=== PATIENT | female | born 1985 | race Caucasian/White ===

== ENCOUNTER 2018-08-15 12:30 | Emergency (ER) | payer OTHER ==
[2018-08-15 12:53] VITALS: BMI 31.8
--- NOTE | 2018-08-15 13:20 | PDOC ---
History of Present Illness - General Chief Complaint: Seizure Stated Complaint: POSSIBLE SEIZURE Time Seen by Provider: 08/15/18 12:58 - History of Present Illness Initial Comments: 08/15/18 14:06 33F with pmh of TBI and seizures presents to the ED with tingling down the extremities, feeling she might be about to have a seizure. Usually takes unknown dose of Keppra, used to take Depakote as well. Does not have a neurologist. Past History - Past Medical History Allergies/Adverse Reactions: Allergies Allergy/AdvReac Type Severity Reaction Status Date / Time No Known Allergies Allergy Verified 08/15/18 12:53 Home Medications: Ambulatory Orders Albuterol Sulfate Inhaler - [Ventolin HFA Inhaler -] 1 - 2 inh PO Q4H #1 inhaler 08/15/18 Divalproex *ER* [Depakote *ER* -] 250 mg PO BID #60 tablet.sa 08/15/18 levETIRAcetam [Keppra Xr -] 1,000 mg PO BID #30 tab 08/15/18 COPD: No Psychiatric Problems: Yes (drug abuse/homeless) Seizures: Yes - Immunization History Immunization Up to Date: Yes - Suicide/Smoking/Psychosocial Hx Smoking History: Unknown if ever smoked Have you smoked in the past 12 months: No Information on smoking cessation initiated: No 'Breaking Loose' booklet given: 08/11/15 Hx Alcohol Use: No Drug/Substance Use Hx: No Substance Use Type: None Review of Systems - Review of Systems Able to Perform ROS?: Yes Is the patient limited American proficient: No Constitutional: No: Symptoms Reported HEENTM: No: Symptoms Reported Respiratory: No: Symptoms reported Cardiac (ROS): No: Symptoms Reported ABD/GI: No: Symptoms Reported Neurological: Yes: See HPI, Tingling All Other Systems: Reviewed and Negative *Physical Exam - Vital Signs Last Vital Signs Temp Pulse Resp BP Pulse Ox 98 F 95 H 16 109/73 100 08/15/18 12:30 08/15/18 12:30 08/15/18 12:30 08/15/18 12:30 08/15/18 12:30 - Physical Exam General Appearance: Yes: Nourished, Appropriately Dressed. No: Apparent Distress HEENT: positive: EOMI, PRIMO, Normal ENT Inspection Respiratory/Chest: positive: Wheezing (on expiration). negative: Chest Tender Cardiovascular: positive: Regular Rhythm, Regular Rate, S1, S2 Gastrointestinal/Abdominal: positive: Normal Bowel Sounds, Flat, Soft. negative : Tender Integumentary: positive: Normal Color Neurologic: positive: Fully Oriented, Alert, Normal Mood/Affect, Normal Response. negative: Numbness, Sensory Deficit ED Treatment Course - LABORATORY CBC & Chemistry Diagram: 08/15/18 13:42 08/15/18 13:42 Medical Decision Making - Medical Decision Making 08/15/18 14:48 33F with h/o TBI and seizure, non-compliant with medication presents with tingling down extremities. PAtuient has h/o asthma and is wheezin, giving duoneb. Called [facility] to gather more information about the patient's home dose of anti-seizure meds. Patient has had a visit to [facility] in February and June where she got a 2 weeks Rx of Depakote in February and Keppra in June. Will give loading dose of Keppra and d/c with prescription of Keppra and give Neurology follow up. *DC/Admit/Observation/Transfer Diagnosis at time of Disposition: Tingling in extremities, Wheezing - Discharge Dispostion Disposition: HOME Condition at time of disposition: Improved Decision to Admit order: No - Prescriptions Prescriptions: levETIRAcetam [Keppra Xr -] 1,000 mg PO BID #30 tab - Referrals Referrals: Luis A Finney MD [Staff Physician] - Misha Oropeza MD [Staff Physician] - Pancho Colmenares DO [Staff Physician] - - Patient Instructions Printed Discharge Instructions: DI for Seizure Disorder -- Adult Additional Instructions: quality assurance group leader your prescription from the pharmacy as use as directed. Follow up with neurology with any of the providers referred to you. Come back to the emergency medicine for any new, worsening or concerning symptom. - Post Discharge Activity
[2018-08-15 13:51] LABS: BASO % 0.9 % (0-2.0); EOS % 2.4 % (0-4.5); HEMATOCRIT 40.8 % (32.4-45.2); HEMOGLOBIN 13.7 GM/dL (10.7-15.3); LYMPH % 25.3 % (8-40); MCH 31.3 pg (25.7-33.7); MCHC 33.6 g/dl (32.0-36.0); MEAN CELL VOLUME 93.2 fl (80-96); MONO % 8.2 % (3.8-10.2); NEUT % 63.2 % (42.8-82.8); RBC 4.38 M/mm3 (3.60-5.2); WHITE BLOOD COUNT 8.3 K/mm3 (4.0-10.0)
[2018-08-15] MEDS ORDERED: ALBUTEROL SO4 2.5/IPRATROPIUM 0.5 INH SOL 3 ML VIAL.NEB. NEB ONE ×2 (14:03→14:12)
[2018-08-15] MEDS ORDERED: levETIRAcetam 500 MG/5 ML INJECTION VIAL IVPB ONE ×2 (14:03→14:12)
[2018-08-15 14:13] LABS: ALBUMIN 3.9 g/dl (3.4-5.0); BILIRUBIN,TOTAL 0.5 mg/dL (0.2-1); BLOOD UREA NITROGEN 9.2 mg/dL (7-18); CALCIUM 9.1 mg/dL (8.5-10.1); CREATININE 0.7 mg/dL (0.55-1.3); POTASSIUM 4.3 mmol/L (3.5-5.1); TOT PROT 7.6 g/dl (6.4-8.2)
--- NOTE | 2018-08-15 14:32 | PDOC ---
Documentation entered by Ray Waters SCRIBE, acting as scribe for Kaila Fink MD. Kaila Fink MD: This documentation has been prepared by the Jt gonzalez Daniel, SCRIBE, under my direction and personally reviewed by me in its entirety. I confirm that the documentation accurately reflects all work, treatment, procedures, and medical decision making performed by me. Attending Attestation - Resident Resident Name: Brad Rivers - ED Attending Attestation I have performed the following: I have examined & evaluated the patient, The case was reviewed & discussed with the resident, I agree w/resident's findings & plan - HPI HPI: 08/15/18 13:43 The patient is a 33 year old female with a past medical history of TBI/ seizures , smoker here today for evaluation of possible seizure. The patient reports that she ran out of her seizure meds 4 days ago and came in today due to fear of possible seizure. She notes tingling in her hands and feet. last sz was 1 week ago, seen at [facility] had a nasal fx she is supposed to be on keppra 1g BID and depakoate 250mg BID, has not been taking x 1 week at least due to running out of meds +smoker. Patient denies headache, lightheadedness. Denies fever, chills. Denies chest pain, shortness of breath. Denies nausea, vomiting, diarrhea, abdominal pain. Allergies: NKA 08/15/18 15:09 - Physicial Exam PE: 08/15/18 14:28 Agree with the resident's HPI and PE as documented in the electronic medical record. NAD, alert, oriented appropriately, EOMI, PERRL, MMM, nl conjunctiva, anicteric ; neck supple. lungs with wheezing, RRR, abdomen soft nontender. Back nontender. MCDOWELL x4, no focal neuro deficits. No peripheral edema. normal color for ethnicity, WWP. 08/15/18 15:10 08/15/18 15:11 - Medical Decision Making 08/15/18 15:10 See HPI for details. Prior notes reviewed, including admissions, discharges and consultations. Vital signs reviewed, wnl. laboratory results and imaging reviewed, basic labs and lytes wnl, LFTs normal UA_neg EKG normal sinus rhythm at 86 bpm, no interval abnormalities, narrow QRS, ST and T wave segments and morphology normal. valproic level low; keppra level pending CT head_unremarkable, no DIRECTOR OF CARDIAC REHABILITATION pathology ED course - no events here, no seizure, episode of shaking but was awake and alert and making purposeful movements, so doubt -interventions: IVF, keppra; duonebs for wheezing, she is smoker; however, no sob or cp, no respiratory distress or hypoxia, so doubt pathology and will rx albuterol inhaler to be used as needed. resident contacted [facility], where she has gone previously, visits notable for prior keppra administration pharmacy called, has had rx for keppra 1g BID will refill, as pt is not able to provide info on medication regimen. refill valproic acid 250mg BID and keppra 1g BID, compliance encouraged neuro followup provided, compliance emphasized. Pt to be discharged in stable condition. Patient made aware of clinical impression, treatment recommendations and disposition plan, return precautions discussed (including but not limited to new or persistent/worsening symptoms, pain, fevers, or signs of infection, chest pain, respiratory distress, inability to tolerate oral intake, dehydration, syncope, or neurologic changes) . Follow up with PMD and/or specialist as recommended, follow up information provided, take medications as instructed for duration of time. continue with supportive care, avoid triggers and precipitants. All questions answered to patient's satisfaction and expressed understanding and comfort with this. At the time of discharge, the patient is alert, clinically improved, tolerating po and verbalizes understanding of instructions, satisfied with the care received and felt comfortable with the plan. Patient does not suffer from an acute life- threatening medical condition at this time and is safe for outpatient follow- up. 08/15/18 15:11 08/15/18 15:12 08/15/18 15:16 08/15/18 16:18 Heart Score/ECG Review #1 ECG reviewed & interpreted by me at: 13:30 General ECG Interpretation: Sinus Rhythm, Normal Rate, Normal Intervals Compared to previous ECG there are: No significant change 08/15/18 14:32 EKG normal sinus rhythm at 86 bpm, no interval abnormalities, narrow QRS, ST and T wave segments and morphology normal.
[2018-08-15] MEDS ORDERED: SODIUM CHLORIDE 0.9% 500 ML INFUS.BAG IV ONE (14:47)
[2018-08-15 15:10] LABS: PLATELET COUNT 370 K/MM3 (134-434)
[2018-08-15 18:32] VITALS: BP 110/78; PULSE 76; TEMP 98.5
--- NOTE | 2018-08-17 00:25 | EKG ---
Test Reason : Blood Pressure : / mmHG Vent. Rate : 086 BPM Atrial Rate : 086 BPM P-R Int : 138 ms QRS Dur : 080 ms QT Int : 354 ms P-R-T Axes : 070 065 058 degrees QTc Int : 423 ms NORMAL SINUS RHYTHM NORMAL ECG WHEN COMPARED WITH ECG OF 22-JUN-2014 00:11, T WAVE INVERSION NO LONGER EVIDENT IN ANTERIOR LEADS Confirmed by MD Jose, Ricardo ([id number]) on 08/17/2018 12:25:10 AM Referred By: Confirmed By:Ricardo Garcia MD
== END 2018-08-15 18:32 | disposition home or self-care (01) ==
LOC: JER 12:30
PROC: 3E0F7GC Introduction of Other Therapeutic Substance into Respiratory Tract, Via Natural or Artificial Opening (ICD-10-PCS; principal; 2018-08-15)
PROC: 3E033GC Introduction of Other Therapeutic Substance into Peripheral Vein, Percutaneous Approach (ICD-10-PCS; 2018-08-15)
DX: G40.909 Epilepsy, unspecified, not intractable, without status epilepticus (principal); R20.2 Paresthesia of skin; Z91.14 Patient's other noncompliance with medication regimen
CPT/HCPCS: 36415; 70450-TC; 80053; 80164; 80177; 84703; 85025; 93005; 93010; 94640; 96374; 99283-25

== ENCOUNTER 2019-09-13 15:21 | Emergency (ER) | payer OTHER ==
[2019-09-13 15:25] VITALS: BP 111/68; PULSE 86; TEMP 98.5; BMI 30.8
--- NOTE | 2019-09-13 15:25 | PDOC ---
History of Present Illness - General Chief Complaint: Suture/Staple Removal(Here) Stated Complaint: LEFT ANKLE SURGERY Time Seen by Provider: 09/13/19 15:23 History Source: Patient Exam Limitations: No Limitations - History of Present Illness Initial Comments: 09/13/19 15:24 34 year old female with a past medical history of TBI/ seizures, smoker here today for evaluation of left ankle pain. She is s/p left ankle surgery about [address] Porter at [facility] when she sustained tib-fib fx.. pt c/o pain with walking "all the time." pt sent in from Dr Porter for eval of the left ankle pain, suture removal, post op x ray. he states pt has been weight bearing, not compliant with weight bearing restrictions; pt states she has had difficulty getting wheelchair thro [facility] [employer] her insurance company. 09/13/19 15:31 09/13/19 16:17 Past History - Medical History Allergies/Adverse Reactions: Allergies Allergy/AdvReac Type Severity Reaction Status Date / Time No Known Allergies Allergy Verified 09/13/19 15:23 Home Medications: Ambulatory Orders Albuterol Sulfate Inhaler - [Ventolin HFA Inhaler -] 1 - 2 inh PO Q4H #1 inhaler 08/15/18 Divalproex *ER* [Depakote *ER* -] 250 mg PO BID #60 tablet.sa 08/15/18 levETIRAcetam [Keppra Xr -] 1,000 mg PO BID #30 tab 08/15/18 levETIRAcetam [Keppra -] 500 mg PO BID #60 tablet 08/18/18 COPD: No Psychiatric Problems: Yes (drug abuse/homeless) Seizures: Yes - Immunization History Immunization Up to Date: Yes - Psycho-Social/Smoking History Smoking History: Unknown if ever smoked Have you smoked in the past 12 months: No 'Breaking Loose' booklet given: 08/11/15 Review of Systems - Review of Systems Able to Perform ROS?: Yes Comments:: 09/13/19 15:32 Review of Systems Constitutional: no fevers or chills. Abdomen: no abdominal pain Genitorurinary: no urinary retention or incontinence, no dysuria, urgency or frequency. no hematuria MUSCULOSKELETAL: +joint pain and swelling. No muscle pain/arthralgias. Back: no back pain SKIN: no redness or skin changes, no discharge, no rash. +healed wound with sutures in place Hematologic: no easy bruising/bleeding. NEUROLOGIC: No weakness, numbness or tingling. Allergic/Immunologic: no allergies All other systems reviewed and negative, or as documented in HPI. *Physical Exam - Physical Exam 09/13/19 15:32 physical exam General: NAD, well appearing HEENT: NCAT, EOMI, PERRL. airway patent Resp: no distress, speaking full sentences. Abdomen: soft, no tenderness, nondistended Vascular: 2+ DP pulses symmetric and equal. Back: no midline tenderness, no stepoffs, FROM MSK: notable for soft compartments, Cap refill <2 sec. Proximal and distal strength 5/5, molder machine tender strength 5/5 - equal and symmetric. Plantar flexion and dorsiflexion 5/5. FROM. Sensation grossly intact to light touch. No calf tenderness. +left lateral and medial malleolar and lower leg sutures in place, vertical, well healed, no erythema, c/d/i Neuro: alert, no focal neurologic deficits Skin: color normal color, warm and well perfused. Cap refill <2 sec. left lateral lower leg/ and medial malleolar vertical c/d/i wound, sutures in place 09/13/19 15:55 Medical Decision Making - Medical Decision Making 09/13/19 15:34 Vital Signs Temp Pulse Resp BP Pulse Ox 98.5 F 86 16 111/68 100 09/13/19 15:23 09/13/19 15:23 09/13/19 15:23 09/13/19 15:23 09/13/19 15:23 VS reviewed, wnl spoke with Dr Porter, will come to the ED for eval, suture removal post op x ray requested. cam boot removed fully. NVI. tylenol/toradol given here for analgesia no indication for opioids Xray left ankle with normal joint space alignment, no acute fx or dislocation. s/p plating and screws in place given prior fracture pattern, in place with hardware intact sutures removed by Dr Porter, no complications. continue with nonweight bearing status Discussed results with patient. Rest ice and elevation. Pain control with OTC meds including motrin/tylenol as needed every 6 hours; no narcotics needed. Ortho followup provided. Crutches to assist with ambulation Please return to ED for increased pain, weakness, numbness/tingling, fever, or redness, neuro changes/fall risk 09/13/19 16:16 Discharge - Discharge Information Problems reviewed: Yes Clinical Impression/Diagnosis: Encounter for removal of sutures, Left ankle pain Left ankle injury Qualifiers: Encounter type: sequela Qualified Code(s): S99.912S - Unspecified injury of left ankle, sequela Condition: Stable Disposition: HOME - Admission No - Follow up/Referral Referrals: Hector Porter DO [Staff Physician] - - Patient Discharge Instructions Patient Printed Discharge Instructions: DI for Suture Removal, DI for Ankle Pain Additional Instructions: keep weight off your foot as you continue to heal. maintain the cam boot monitor for signs of infection, your stitches were removed today monitor for signs of infection, such as fever, discharge, malodor, redness, swelling, increased pain or other worsening symptoms such as focal weakness, numbness, tingling, falls or gait instability. follow up with Dr Porter, your orthopedist physician as an outpatient for appropriate reevaluation and followup - Post Discharge Activity
[2019-09-13] MEDS ORDERED: ACETAMINOPHEN 325 MG TABLET (FP) PO ONE (15:48)
[2019-09-13] MEDS ORDERED: KETOROLAC TROMETHAMINE 30 MG/1 ML VIAL IM ONE (15:49)
[2019-09-13] MEDS ORDERED: ACETAMINOPHEN 325 MG TABLET (FP) ONE (15:51)
[2019-09-13] MEDS ORDERED: KETOROLAC TROMETHAMINE 30 MG/1 ML VIAL ONE (15:52)
--- NOTE | 2019-09-13 16:39 | CONSULT ---
Consult - text type - Consultation Consultation Note: ORTHOPEDIC SURGERY CONSULTATION NOTE Department of Orthopedic Surgery HISTORY OF PRESENT ILLNESS Key Bingham is a 34 year old female who presents to [facility] for evaluation of her left ankle. She is 3 weeks status post left ankle ORIF. We contacted her today to confirm her routine office appointment tomorrow for suture removal. She stated that she was having ankle pain and admits to not being complaint with weight bearing restrictions. She has not been able to get a wheelchair or knee scooter. She had a doctors appointment today in [place] and has been ambulating with a cane. She was told to go to the ED and I would meet her there. She currently complains of left ankle pain 03/29. Denies any new injuries. Denies numbness, tingling, fevers, chills or other constitutional complaints. Denies tobacco use, drug use, alcohol abuse. The patient is using a cane as an assistive device. FAMILY HISTORY Review and noncontributory REVIEW OF SYMPTOMS A twelve-point review of systems was performed and was negative except as noted in HPI. PHYSICAL EXAM Constitutional: Alert and oriented to person, place, and time. No acute distress. Right Lower Extremity: No cords or calf tenderness. No significant calf/ankle edema. Full passive and active ROM, free from pain. Joints stable with no pathologic laxity. EHL/TA/GS motor intact; SILT distally; 2+ DP pulses; Cap refill brisk. Tone and reflexes normal. Left Lower Extremity: Medial and lateral incisions healing well with no drainage, erythema or signs of infection. No pain with gentle ankle range of motion. No masses or effusions noted. No tenderness to palpation. No cords or calf tenderness. No significant calf/ankle edema. Passive and active ROM of the ankle, free from pain. Joints stable with no pathologic laxity. EHL/TA/GS motor intact; SILT distally; 2+ DP pulses; Cap refill brisk. Tone and reflexes normal. Social History Smoking history Unknown if ever smoked Aproximately how many 1 cigarettes per day Hx Alcohol Use No Allergies Allergy/AdvReac Type Severity Reaction Status Date / Time No Known Allergies Allergy Verified 09/13/19 15:23 Vital Signs (last) Temp Pulse Resp BP Pulse Ox 98.5 F 86 16 111/68 100 09/13/19 15:23 09/13/19 15:23 09/13/19 15:23 09/13/19 15:23 09/13/19 15:23 Intake and Output 09/11/19 09/12/19 09/13/19 23:59 23:59 23:59 Other: Weight 174 lb Height 5 ft 3 in Body Mass Index (BMI) 30.8 Weight Measurement Method Est/Stated by Patient IMAGING I personally radiographs of the left ankle (3 views). They demonstrate intact metal hardware with no callus formation. The ankle mortise is intact. ASSESSMENT AND PLAN Key Bingham is a 34 year old female presenting 3 weeks status post left ankle ORIF. We have reviewed the imaging and clinical findings in detail, as well as their potential implications. After appropriate informed discussion, the sutures were removed and steri-strips applied. She was placed back into the cam walker and given crutches. We again discussed the importance of non-weight bearing on the operative extremity. She is refusing admission and/or rehab placement. We will fax over a script for a wheelchair to another surgical supply store. Patient was instructed regarding: non weight bearing on fractured side. signs and symptoms of compartment syndrome and need to seek immediate care should new onset numbness, tingling, or significantly increasing pain occur. maintain strict elevation above the level of the heart for the next 3-4 days. keeping the incision clean and dry. avoiding NSAID medications. All questions were answered. Thank you for involving our team in the care of this patient. Please have patient follow up in our office in 1 week [phone].
== END 2019-09-13 16:21 | disposition home or self-care (01) ==
LOC: FER 15:21
PROC: 3E0233Z Introduction of Anti-inflammatory into Muscle, Percutaneous Approach (ICD-10-PCS; principal; 2019-09-13)
DX: S99.912A Unspecified injury of left ankle, initial encounter (principal); Z48.02 Encounter for removal of sutures
CPT/HCPCS: 73610-TC-LT-FY; 99284-25